=== PATIENT | male | born 2000 | race Caucasian/White ===

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

== ENCOUNTER 2024-08-12 12:00 | Emergency (ER) | payer OTHER ==
[2024-08-12 12:53] VITALS: BP 104/67; PULSE 79
== END 2024-08-12 13:00 | disposition home or self-care (01) ==
LOC: FB.ED 12:00
DX: A05.0 Foodborne staphylococcal intoxication (principal)
CPT/HCPCS: 99283